=== PATIENT | male | born 1985 | race Caucasian/White ===

== ENCOUNTER 2018-10-14 21:51 | Emergency (ER) | payer MEDICAID ==
[~2018-10-14] VITALS: Ht 172.7 cm; Wt 112.3 kg
[2018-10-14 22:00] VITALS: TEMP 98.8
[2018-10-14 23:29] LABS: BASO # 0.1 (0.0-0.2); BASO % 1.1 % (0.0-2.0); EOS # 0.8 (0.0-0.7); EOS % 7.6 % (0-4.0); GRAN # 5.1 (1.4-6.5); GRAN % 47.4 % (42.2-75.2); HEMATOCRIT 41.7 % (42.0-52.0); HEMOGLOBIN 14.5 g/dl (13.5-18.0); LYMPH # 4.1 (1.2-3.4); LYMPH % 37.8 % (20.0-51.0); MEAN CELL VOLUME 87 fl (80.0-100.0); MEAN CORPUSCULAR HEMOGLOBIN 30 pg (27.0-31.0); MEAN CORPUSCULAR HGB CONC 35 g/dl (33.0-37.0); MEAN PLATELET VOLUME 8.6 fl (7.4-10.4); MONO # 0.6 (0.1-0.6); MONO % 5.6 % (1.7-9.3); PLATELET COUNT 297 K/mm3 (130-400); RED BLOOD COUNT 4.77 M/mm3 (4.20-5.60)
[2018-10-14 23:35] LABS: INR 1.1 (0.8-3.0); PROTHROMBIN TIME 12.1 SECONDS (9.7-12.8)
[2018-10-14 23:40] LABS: ALANINE AMINOTRANSFERASE 56 U/L (21-72); ALBUMIN 4.2 gm/dL (3.5-5.0); ALKALINE PHOSPHATASE 81 U/L (50-136); ANION GAP 5 mmol/L (7-16); AST,SGOT 42 U/L (15-37); BILIRUBIN,TOTAL 0.3 mg/dL (0.0-1.0); BLOOD UREA NITROGEN 12 mg/dL (9-20); CALCIUM 9.4 mg/dL (8.4-10.2); CARBON DIOXIDE 30 mmol/L (22-30); CHLORIDE 105 mmol/L (98-107); CREATININE, serum 1.08 mg/dL (0.66-1.25); GLUCOSE 72 mg/dL (74-106); POTASSIUM 4.1 mmol/L (3.4-5.0); SODIUM 140 mmol/L (137-145); TOTAL PROTEIN 7.1 gm/dL (6.4-8.2)
[2018-10-14 23:53] LABS: TROPONIN-I < 0.012 ng/mL (0.000-0.034)
[2018-10-15] MEDS ORDERED: ULTRAM ER100 MG PO (00:51)
[2018-10-15 01:20] VITALS: BP 132/88
[2018-10-15] MEDS ORDERED: DOXYCYCLINE 10100 MG PO (01:25)
[2018-10-15 01:34] VITALS: PULSE 94
== END 2018-10-15 01:37 | disposition home or self-care (01) ==
LOC: COL.ER 21:51 → EDBD 21:52 → COL.ER 10-15 01:37
PROVIDERS: Emergency Medicine
DX: J18.9 Pneumonia, unspecified organism (principal); F17.210 Nicotine dependence, cigarettes, uncomplicated; Z98.890 Other specified postprocedural states
CPT/HCPCS: J1100; J1170; Q9967